=== PATIENT | female | born 1990 | race Caucasian/White ===

== ENCOUNTER 2016-08-23 07:59 | Emergency (ER) | payer MEDICAID, OTHER ==
[~2016-08-23] VITALS: Ht 170.2 cm; Wt 88.0 kg
[~2016-08-23 07:59] MED LIST: CLIN150 PO; CLIN1CAP5 PO; HYDR-3580 PO; IBUP800T23 PO; ZOFR4TAB3 SL
[2016-08-23 08:03] VITALS: BP 130/89; PULSE 77; RESP 16; TEMP 97.8; O2SAT 99
[2016-08-23] MEDS ORDERED: CLIN1CAP6 PO (08:22)
[2016-08-23] MEDS ORDERED: OMEP40CA2 PO (08:22)
[2016-08-23] MEDS ORDERED: MOTR200T4 PO (08:22)
--- NOTE | 2016-08-23 08:29 | PD ---
HPI Chief Complaint: Chest Pain Time Seen by Provider: 08:12 Travel History International Travel<30 days: No Contact w/Intl Traveler<30days: No Traveled to known affect area: No History of Present Illness HPI The patient was seen and examined in the presence of the nurse. This patient has had spells of pain in the right torso on and off for 3-4 months. She denies fever or repetitive vomiting or diarrhea. She located the bottom of the right rib cage. She saw her primary physician who ordered an outpatient ultrasound the right upper quadrant which is scheduled for 10 AM this morning at [facility]. She came in at 8:30 AM because she was having more pain. No alleviating factors. Symptoms of moderate severity. Eating does not seem to make it worse. No injury to the area. PFSH Past Medical History Diminished Hearing: No GERD: Yes Tetanus Vaccination: > 5 Years Influenza Vaccination: No ?: Not : 3 Para: 1 Miscarriage: 2 Past Surgical History Section: Yes (x1) Social History Alcohol Use: Yes (~1 X WEEKLY) Tobacco Use: Yes (1 PPD) Substance Use: No Allergies-Medications (Allergen,Severity, Reaction): Coded Allergies: Penicillin (Unverified Allergy, Severe, RASH, 08/23/16) Reported Meds & Prescriptions Reported Meds & Active Scripts Active Reported Motrin Ib (Ibuprofen) 200 Mg Tab 800 Mg PO Q6H PRN Clindamycin (Clindamycin HCl) 300 Mg Cap 300 Mg PO Q6H Omeprazole 40 Mg Cap 40 Mg PO DAILY Review of Systems General / Constitutional: No: Fever Eyes: No: Visual changes HENT: No: Headaches Cardiovascular: Positive: Chest Pain or Discomfort Respiratory: No: Shortness of Breath Gastrointestinal: Positive: Abdominal Pain Genitourinary: No: Dysuria Musculoskeletal: No: Pain Skin: No Rash Neurologic: No: Weakness Psychiatric: No: Depression Endocrine: No: Polydipsia Hematologic/Lymphatic: No: Easy Bruising Physical Exam Narrative GENERAL: Well-nourished, well-developed patient with right lower chest pain. SKIN: Focused skin assessment reveals no rash and nodules. Skin is Warm and dry. HEAD: Atraumatic. Normocephalic. EYES: Pupils equal and round. No scleral icterus. No injection or drainage. ENT: No nasal bleeding or discharge. Mucous membranes pink and moist. NECK: Trachea midline. No JVD. CARDIOVASCULAR: Regular rate and rhythm. No murmur appreciated. RESPIRATORY: No accessory muscle use. Clear to auscultation. Breath sounds equal bilaterally. GASTROINTESTINAL: Abdomen soft, minor right lower quadrant tenderness without rebound or guarding , nondistended. Hepatic and splenic margins not palpable. MUSCULOSKELETAL: No obvious deformities. No clubbing. No cyanosis. No edema. Very prominent chest wall tenderness in the right lower rib cage. Seems worse in the mid clavicular line. There is no bruising or crepitus there. NEUROLOGICAL: Awake and alert. No obvious cranial nerve deficits. Motor grossly within normal limits. Normal speech. PSYCHIATRIC: Appropriate mood and affect; insight and judgment normal. Data Data Last Documented VS Vital Signs Date Time Temp Pulse Resp B/P Pulse Ox O2 Delivery O2 Flow Rate FiO2 08/23/16 09:14 70 14 117/69 100 Room Air 08/23/16 08:03 97.8 Orders Ketorolac Inj (Toradol Inj) (08/23/16 08:30) Complete Blood Count With Diff (08/23/16 08:20) Comprehensive Metabolic Panel (08/23/16 08:20) Lipase (08/23/16 08:20) Iv Access Insert/Monitor (08/23/16 08:20) Labs Laboratory Tests Test 08/23/16 08:30 White Blood Count 13.9 TH/MM3 Red Blood Count 4.96 MIL/MM3 Hemoglobin 14.2 GM/DL Hematocrit 42.1 % Mean Corpuscular Volume 84.9 FL Mean Corpuscular Hemoglobin 28.6 PG Mean Corpuscular Hemoglobin 33.7 % Concent Red Cell Distribution Width 13.7 % Platelet Count 374 TH/MM3 Mean Platelet Volume 7.0 FL Neutrophils (%) (Auto) 67.2 % Lymphocytes (%) (Auto) 25.9 % Monocytes (%) (Auto) 4.1 % Eosinophils (%) (Auto) 2.4 % Basophils (%) (Auto) 0.4 % Neutrophils # (Auto) 9.3 TH/MM3 Lymphocytes # (Auto) 3.6 TH/MM3 Monocytes # (Auto) 0.6 TH/MM3 Eosinophils # (Auto) 0.3 TH/MM3 Basophils # (Auto) 0.1 TH/MM3 CBC Comment DIFF FINAL Differential Comment Sodium Level 138 MEQ/L Potassium Level 4.1 MEQ/L Chloride Level 106 MEQ/L Carbon Dioxide Level 24.9 MEQ/L Anion Gap 7 MEQ/L Blood Urea Nitrogen 11 MG/DL Creatinine 0.68 MG/DL Estimat Glomerular Filtration 106 ML/MIN Rate Random Glucose 104 MG/DL Calcium Level 8.8 MG/DL Total Bilirubin 0.3 MG/DL Aspartate Amino Transf 19 U/L (AST/SGOT) Alanine Aminotransferase 30 U/L (ALT/SGPT) Alkaline Phosphatase 74 U/L Total Protein 7.4 GM/DL Albumin 3.3 GM/DL Lipase 89 U/L [facility] Medical Decision Making Medical Screen Exam Complete: Yes Emergency Medical Condition: Yes Medical Record Reviewed: Yes Differential Diagnosis Costochondritis, chest wall pain, biliary colic Narrative Course I have reviewed the patient's electronic medical record. Patient was here March 2014 for dental problem IV placed CBC shows minimal nonspecific leukocytosis of 13,000 Metabolic profile is normal LFTs are normal Lipase is normal I gave her 30 mg IV Toradol On a clinical basis seems to be much more consistent with chest wall pain rather than an abdominal etiology given the fact that she is very very tender with readily reproducible pain over the bottom couple of ribs in the right side. Has much less tenderness in the right upper quadrant. Nonetheless I placed an IV and given her something for discomfort. She did drive herself so I do not want to sedate her. Running some lab studies and if these could suggest gallbladder pathology such as elevated LFTs or lipase etc. then I will proceed with abdominal imaging. However, this is a chronic intermittent problem for 3-4 months time and her doctor is evaluating it. I wrote her some tramadol and recommended a low-fat bland diet. She is going to be discharged and will go get her ultrasound and follow-up with her primary physician Diagnosis Primary Impression: Right-sided chest wall pain Additional Impression: Right upper quadrant pain Additional Instructions: The patient was advised to follow up with their physician and return if they worsen. The patient was warned about potential sedation for the medications they will receive on prescription. Low-fat bland diet Med/Other Pt SpecificInfo: Prescription(s) given Scripts Tramadol 50 Mg Tab50 Mg PO Q6H PRN (PAIN) #25 TAB Ref 0 Prov:Freddy Souza MD 08/23/16 Disposition: 01 DISCHARGE HOME Condition: Stable Freddy Souza MD August 23, 2016 08:29
[2016-08-23] MEDS ORDERED: KETOROLAC TROMETHAMINE 30 MG/ML (IVP) VIAL IV PUSH ONE (08:30)
[2016-08-23 08:36] LABS: AUTOMATED NEUTROPHIL # 9.3 TH/MM3 (1.8-7.7); BASOPHIL # 0.1 TH/MM3 (0-0.2); BASOPHIL % 0.4 % (0.0-2.0); EOSINOPHIL # 0.3 TH/MM3 (0-0.4); EOSINOPHIL % 2.4 % (0.0-4.0); HEMATOCRIT 42.1 % (35.0-46.0); LYMPH % 25.9 % (9.0-44.0); LYMPHOCYTE # 3.6 TH/MM3 (1.0-4.8); MEAN CELL VOLUME 84.9 FL (80.0-100.0); MEAN CORPUSCULAR HEMOGLOBIN 28.6 PG (27.0-34.0); MEAN CORPUSCULAR HGB CONC 33.7 % (32.0-36.0); MONO % 4.1 % (0.0-8.0); NEUT % 67.2 % (16.0-70.0); PLATELET COUNT 374 TH/MM3 (150-450); RED BLOOD COUNT 4.96 MIL/MM3 (4.00-5.30); RED CELL DISTRIBUTION WIDTH 13.7 % (11.6-17.2); WHITE BLOOD COUNT 13.9 TH/MM3 (4.0-11.0)
[2016-08-23 08:49] LABS: CHLORIDE 106 MEQ/L (98-107); POTASSIUM 4.1 MEQ/L (3.5-5.1); SODIUM (NA) 138 MEQ/L (136-145)
[2016-08-23 08:53] LABS: ANION GAP 7 MEQ/L (5-15); BICARBONATE 24.9 MEQ/L (21.0-32.0); BLOOD UREA NITROGEN 11 MG/DL (7-18)
[2016-08-23 08:56] LABS: ALT (GPT) 30 U/L (10-53); AST (GOT) 19 U/L (15-37); GLOMERULAR FILTRATION RATE 106 ML/MIN (>89)
[2016-08-23 08:58] LABS: TOTAL BILIRUBIN ADULT 0.3 MG/DL (0.2-1.0)
[2016-08-23 08:59] LABS: ALKALINE PHOSPHATASE 74 U/L (45-117)
[2016-08-23 09:10] LABS: HEMO FLAGS DIFF FINAL
[2016-08-23 09:14] VITALS: BP 117/69; PULSE 70; RESP 14; O2SAT 100
[2016-08-23] MEDS ORDERED: TRAM50TA PO (09:26)
== END 2016-08-23 09:35 | disposition home or self-care (01) ==
LOC: PHED 07:59
DX: R07.89 Other chest pain (principal); R10.11 Right upper quadrant pain; K21.9 Gastro-esophageal reflux disease without esophagitis; F17.200 Nicotine dependence, unspecified, uncomplicated
CPT/HCPCS: 80053; 83690; 85025; 96374; 99283; J1885